=== PATIENT | male | born 1965 | race Caucasian/White ===

== ENCOUNTER 2022-04-02 13:38 | Inpatient (IN) | payer SELFPAY ==
[~2022-04-02] VITALS: Ht 175.3 cm; Wt 113.4 kg
[2022-04-02 14:12] LABS: BASOPHILS % 0.4 % (0.0-1.0); HEMATOCRIT 47.8 % (38.2-49.6); HEMOGLOBIN 16.4 g/dL (14.0-18.0); LYMPHOCYTES # (AUTO) 1.4 (1.0-3.2); LYMPHOCYTES % 24.6 % (18.0-39.1); MEAN CORPUSCULAR HGB CONC 34.3 g/dL (31-35); MEAN CORPUSCULAR VOLUME 87.5 fL (81-99); MONOCYTES # (AUTO) 0.3 (0.2-0.8); MONOCYTES % 5.3 % (4.4-11.3); NEUTROPHILS # (AUTO) 3.9 (2.1-6.9); NEUTROPHILS % 69.2 % (38.7-80.0); RED BLOOD COUNT 5.46 x10e6/uL (4.3-5.7); RED CELL DISTRIBUTION WIDTH 11.6 % (11.7-14.4)
[2022-04-02 14:13] LABS: PLATELET COUNT 67 x10e3/uL (140-360)
[2022-04-02] MEDS ORDERED: ACETAMINOPHEN 325 MG TAB PO ONE (14:15)
[2022-04-02 14:24] LABS: INR 1.05; PARTIAL THROMBOPLASTIN TIME 30.3 seconds (23.8-35.5); PROTHROMBIN TIME 14.7 seconds (11.9-14.5)
[2022-04-02 14:30] LABS: ALBUMIN/GLOBULIN RATIO 0.9 (0.8-2.0); ANION GAP 12.9 mmol/L (8-16); CALCIUM 8.1 mg/dL (8.4-10.2); CREATININE, SERUM 1.16 mg/dL (0.72-1.25); POTASSIUM 3.9 mmol/L (3.5-5.1)
[2022-04-02] MEDS ORDERED: SODIUM CHLORIDE 0.9% IV ONE (14:30)
[2022-04-02] MEDS ORDERED: IOPAMIDOL 370 MG/ML 100 ML INFUS..BTL INJ ONE (15:07)
[2022-04-02] MEDS ORDERED: METFORMIN HCL500 MG PO (16:45)
[2022-04-02] MEDS ORDERED: FARXIGA10 MG PO (16:45)
[2022-04-02] MEDS ORDERED: ROSUVASTATIN CAL5 MG PO (16:45)
[2022-04-02] MEDS ORDERED: vitamin d3 PO (16:45)
[2022-04-02] MEDS ORDERED: DEXTROSE 50% SYRINGE 50 ML IV PRN (19:15)
[2022-04-02] MEDS: INSULIN LISPRO 100 UNIT/1 ML 3ML VIAL SQ SCH (21:30)
[2022-04-03 07:30] VITALS: BP 128/74
[2022-04-03 08:15] VITALS: BP 127/75
[2022-04-03 08:33] LABS: BASOPHILS # (AUTO) 0.1 (0.0-0.1); BASOPHILS % 1.2 % (0.0-1.0); HEMATOCRIT 41.7 % (38.2-49.6); HEMOGLOBIN 14.8 g/dL (14.0-18.0); LYMPHOCYTES # (AUTO) 0.9 (1.0-3.2); LYMPHOCYTES % 18.8 % (18.0-39.1); MEAN CORPUSCULAR HEMOGLOBIN 30.3 pg (28-32); MEAN CORPUSCULAR HGB CONC 35.5 g/dL (31-35); MEAN CORPUSCULAR VOLUME 85.3 fL (81-99); MONOCYTES # (AUTO) 0.3 (0.2-0.8); MONOCYTES % 6.5 % (4.4-11.3); NEUTROPHILS # (AUTO) 3.6 (2.1-6.9); NEUTROPHILS % 72.7 % (38.7-80.0); PLATELET COUNT 70 x10e3/uL (140-360); RED BLOOD COUNT 4.89 x10e6/uL (4.3-5.7); RED CELL DISTRIBUTION WIDTH 12.2 % (11.7-14.4)
[2022-04-03 08:55] LABS: CHOL/HDL RATIO 12.1 (3.9-4.7)
[2022-04-03 08:56] LABS: ANION GAP 15.9 mmol/L (8-16); CREATININE, SERUM 0.98 mg/dL (0.72-1.25); POTASSIUM 3.9 mmol/L (3.5-5.1)
[2022-04-03 08:57] LABS: ALBUMIN 2.6 g/dL (3.5-5.0); BILIRUBIN,DIRECT 0.7 mg/dL (0.0-0.5)
[2022-04-03 09:17] LABS: THYROID STIMULATING HORMONE 0.672 uIU/mL (0.350-4.940)
[2022-04-03] MEDS: INSULIN LISPRO 100 UNIT/1 ML 3ML VIAL SQ SCH ×4 (11:14→21:00)
[2022-04-03 11:43] VITALS: BP 122/75
[2022-04-03] MEDS ORDERED: ACETAMINOPHEN 650 MG SUPP PR NR (14:15)
[2022-04-03] MEDS: SODIUM CHLORIDE 0.9% 1000ML 1,000 ML IV SCH (14:15)
[2022-04-03] MEDS ORDERED: ACETAMINOPHEN 650 MG SUPP PR ONE (14:15)
[2022-04-03 15:32] VITALS: BP 119/65
[2022-04-03] MEDS ORDERED: ACETAMINOPHEN 325 MG TAB PO ONE (19:15)
[2022-04-03] MEDS ORDERED: Vancomycin IV 1 GM in SODIUM CHLORIDE 0.9% 250ML 250 ML IV ONE (19:30)
[2022-04-03 20:00] VITALS: BP 120/74
[2022-04-03 20:07] VITALS: BP 120/74
[2022-04-04] VITALS: BP 130/64
[2022-04-04 04:00] VITALS: BP 127/61
[2022-04-04] MEDS: ACETAMINOPHEN 325 MG TAB PO PRN ×2 (06:01→19:49)
[2022-04-04] MEDS: SODIUM CHLORIDE 0.9% 1000ML 1,000 ML IV SCH (06:02)
[2022-04-04 06:27] LABS: BASOPHILS % 0.2 % (0.0-1.0); HEMATOCRIT 39.2 % (38.2-49.6); HEMOGLOBIN 13.1 g/dL (14.0-18.0); LYMPHOCYTES # (AUTO) 1.2 (1.0-3.2); LYMPHOCYTES % 20.5 % (18.0-39.1); MEAN CORPUSCULAR HEMOGLOBIN 29.9 pg (28-32); MEAN CORPUSCULAR HGB CONC 33.4 g/dL (31-35); MEAN CORPUSCULAR VOLUME 89.5 fL (81-99); MONOCYTES # (AUTO) 0.4 (0.2-0.8); MONOCYTES % 6.6 % (4.4-11.3); NEUTROPHILS # (AUTO) 4.2 (2.1-6.9); NEUTROPHILS % 72.2 % (38.7-80.0); PLATELET COUNT 68 x10e3/uL (140-360); RED BLOOD COUNT 4.38 x10e6/uL (4.3-5.7); RED CELL DISTRIBUTION WIDTH 11.6 % (11.7-14.4)
[2022-04-04 06:47] LABS: ANION GAP 16.3 mmol/L (8-16); CALCIUM 7.7 mg/dL (8.4-10.2); CREATININE, SERUM 0.85 mg/dL (0.72-1.25); POTASSIUM 3.3 mmol/L (3.5-5.1)
[2022-04-04 09:26] VITALS: BP 116/75
[2022-04-04] MEDS: INSULIN LISPRO 100 UNIT/1 ML 3ML VIAL SQ SCH ×4 (09:58→20:34)
[2022-04-04 12:38] LABS: PLATELET ESTIMATE SLIGHTLY DECREASED
[2022-04-04 12:40] LABS: PLATELET MORPHOLOGY COMMENT NORMAL
[2022-04-04] MEDS ORDERED: POTASSIUM CHLORIDE 10MEQ EA PO NR (15:30)
[2022-04-04] MEDS ORDERED: POTASSIUM CHLORIDE 10MEQ EA PO ONE ×2 (15:30→19:15)
[2022-04-04 17:38] VITALS: BP 137/72
[2022-04-04 20:08] VITALS: BP 143/79
[2022-04-04 21:00] VITALS: BP 143/79
[2022-04-05] VITALS (8 sets, daily range): BP systolic 121–144; BP diastolic 62–87
[2022-04-05] MEDS: ACETAMINOPHEN 325 MG TAB PO PRN ×3 (04:18→21:08)
[2022-04-05] MEDS ORDERED: ALBUTEROL/IPRATROPIUM 3 ML NEB NEB PRN (06:00)
[2022-04-05] MEDS ORDERED: FUROSEMIDE INJ 10 MG/ML 4 ML VIAL ONE (06:28)
[2022-04-05] MEDS ORDERED: FUROSEMIDE INJ 10 MG/ML 2 ML VIAL IV ONE (06:45)
[2022-04-05] MEDS: INSULIN LISPRO 100 UNIT/1 ML 3ML VIAL SQ SCH ×4 (07:30→21:13)
[2022-04-05 08:27] LABS: ANION GAP 13.4 mmol/L (8-16); CALCIUM 7.8 mg/dL (8.4-10.2); CREATININE, SERUM 0.9 mg/dL (0.72-1.25); POTASSIUM 3.4 mmol/L (3.5-5.1)
[2022-04-05] MEDS: SIMVASTATIN 20 MG TAB PO SCH (21:08)
[2022-04-06] VITALS (7 sets, daily range): BP systolic 105–142; BP diastolic 64–73
[2022-04-06 06:03] LABS: BASOPHILS % 0.2 % (0.0-1.0); EOSINOPHILS % 0.1 % (0.0-6.0); HEMATOCRIT 39.6 % (38.2-49.6); HEMOGLOBIN 13.2 g/dL (14.0-18.0); LYMPHOCYTES # (AUTO) 1.1 (1.0-3.2); LYMPHOCYTES % 10.8 % (18.0-39.1); MEAN CORPUSCULAR HEMOGLOBIN 29.9 pg (28-32); MEAN CORPUSCULAR HGB CONC 33.3 g/dL (31-35); MEAN CORPUSCULAR VOLUME 89.8 fL (81-99); MONOCYTES # (AUTO) 0.6 (0.2-0.8); MONOCYTES % 5.2 % (4.4-11.3); NEUTROPHILS # (AUTO) 8.7 (2.1-6.9); NEUTROPHILS % 82.7 % (38.7-80.0); PLATELET COUNT 113 x10e3/uL (140-360); RED BLOOD COUNT 4.41 x10e6/uL (4.3-5.7); RED CELL DISTRIBUTION WIDTH 11.9 % (11.7-14.4)
[2022-04-06] MEDS: ACETAMINOPHEN 325 MG TAB PO PRN (06:13)
[2022-04-06 06:21] LABS: ALBUMIN 2.7 g/dL (3.5-5.0); ANION GAP 14.3 mmol/L (8-16); CALCIUM 7.7 mg/dL (8.4-10.2); CREATININE, SERUM 0.84 mg/dL (0.72-1.25); MAGNESIUM 1.8 MG/DL (1.3-2.1); PHOSPHORUS 1.4 MG/DL (2.3-4.7); POTASSIUM 3.3 mmol/L (3.5-5.1)
[2022-04-06] MEDS: INSULIN LISPRO 100 UNIT/1 ML 3ML VIAL SQ SCH ×4 (07:30→21:07)
[2022-04-06] MEDS ORDERED: METFORMIN HCL 500 MG TAB PO SCH (09:00)
[2022-04-06] MEDS: NON-FORMULARY MEDICATION (Dapagliflozin Propanediol (Farxiga) 10 MG) PO SCH (09:00)
[2022-04-06] MEDS ORDERED: POTASSIUM PHOSPHATE IV ONE (10:00)
[2022-04-06] MEDS ORDERED: SODIUM CHLORIDE IV ONE (10:00)
[2022-04-06] MEDS: ACETAMIN/BUTALBITAL/CAFFEINE TAB PO PRN (21:03)
[2022-04-06] MEDS: SIMVASTATIN 20 MG TAB PO SCH (21:03)
[2022-04-07] VITALS (8 sets, daily range): BP systolic 108–120; BP diastolic 53–76
[2022-04-07 06:15] LABS: BASOPHILS # (AUTO) 0.1 (0.0-0.1); BASOPHILS % 0.4 % (0.0-1.0); EOSINOPHILS % 0.2 % (0.0-6.0); HEMATOCRIT 37.8 % (38.2-49.6); HEMOGLOBIN 12.6 g/dL (14.0-18.0); LYMPHOCYTES # (AUTO) 1.8 (1.0-3.2); LYMPHOCYTES % 15.2 % (18.0-39.1); MEAN CORPUSCULAR HGB CONC 33.3 g/dL (31-35); MONOCYTES # (AUTO) 0.7 (0.2-0.8); MONOCYTES % 6.1 % (4.4-11.3); NEUTROPHILS # (AUTO) 9.2 (2.1-6.9); NEUTROPHILS % 76.8 % (38.7-80.0); PLATELET COUNT 236 x10e3/uL (140-360); RED CELL DISTRIBUTION WIDTH 12.4 % (11.7-14.4)
[2022-04-07 06:18] LABS: ANION GAP 15.2 mmol/L (8-16); CALCIUM 7.7 mg/dL (8.4-10.2); CREATININE, SERUM 0.85 mg/dL (0.72-1.25); PHOSPHORUS 1.8 MG/DL (2.3-4.7); POTASSIUM 3.2 mmol/L (3.5-5.1)
[2022-04-07] MEDS: ACETAMIN/BUTALBITAL/CAFFEINE TAB PO PRN ×3 (06:39→21:19)
[2022-04-07] MEDS: INSULIN LISPRO 100 UNIT/1 ML 3ML VIAL SQ SCH ×4 (07:30→21:27)
[2022-04-07] MEDS: METFORMIN HCL 500 MG TAB PO SCH (08:52)
[2022-04-07] MEDS: NON-FORMULARY MEDICATION (Dapagliflozin Propanediol (Farxiga) 10 MG) PO SCH (09:00)
[2022-04-07 09:05] LABS: LYMPHOCYTES % (MANUAL) 16 % (19-48); MONOCYTES % (MANUAL) 7 % (3.4-9.0); MYELOCYTES % (MANUAL) 1 % (0-0); NEUTROPHILS % (MANUAL) 76 % (40-74); PLATELET ESTIMATE ADEQUATE; PLATELET MORPHOLOGY COMMENT NORMAL; RBC MORPHOLOGY COMMENT NORMAL
[2022-04-07] MEDS ORDERED: POTASSIUM CHLORIDE 10MEQ EA PO ONE (15:00)
[2022-04-07] MEDS: CIPROFLOXACIN-DEXAMETHASONE (OTIC) 7.5 ML BOTTLE OT SCH (16:11)
[2022-04-07] MEDS: SIMVASTATIN 20 MG TAB PO SCH (21:19)
[2022-04-08] VITALS (8 sets, daily range): BP systolic 102–148; BP diastolic 59–76
[2022-04-08] MEDS: ACETAMINOPHEN 325 MG TAB PO PRN (05:28)
[2022-04-08] MEDS: INSULIN LISPRO 100 UNIT/1 ML 3ML VIAL SQ SCH ×4 (07:30→21:06)
[2022-04-08 08:19] LABS: BASOPHILS # (AUTO) 0.1 (0.0-0.1); BASOPHILS % 0.6 % (0.0-1.0); EOSINOPHILS # (AUTO) 0.1 (0.0-0.4); EOSINOPHILS % 0.4 % (0.0-6.0); HEMATOCRIT 37.1 % (38.2-49.6); HEMOGLOBIN 12.3 g/dL (14.0-18.0); LYMPHOCYTES # (AUTO) 2.5 (1.0-3.2); LYMPHOCYTES % 20.6 % (18.0-39.1); MEAN CORPUSCULAR HEMOGLOBIN 30.1 pg (28-32); MEAN CORPUSCULAR HGB CONC 33.2 g/dL (31-35); MEAN CORPUSCULAR VOLUME 90.7 fL (81-99); MONOCYTES # (AUTO) 0.8 (0.2-0.8); MONOCYTES % 6.4 % (4.4-11.3); NEUTROPHILS # (AUTO) 8.7 (2.1-6.9); NEUTROPHILS % 70.7 % (38.7-80.0); PLATELET COUNT 298 x10e3/uL (140-360); RED BLOOD COUNT 4.09 x10e6/uL (4.3-5.7); RED CELL DISTRIBUTION WIDTH 12.7 % (11.7-14.4)
[2022-04-08] MEDS: METFORMIN HCL 500 MG TAB PO SCH (08:34)
[2022-04-08] MEDS: CIPROFLOXACIN-DEXAMETHASONE (OTIC) 7.5 ML BOTTLE OT SCH ×2 (08:35→16:38)
[2022-04-08 08:36] LABS: ANION GAP 14.2 mmol/L (8-16); CALCIUM 7.6 mg/dL (8.4-10.2); CREATININE, SERUM 0.96 mg/dL (0.72-1.25); POTASSIUM 3.2 mmol/L (3.5-5.1)
[2022-04-08] MEDS: NON-FORMULARY MEDICATION (Dapagliflozin Propanediol (Farxiga) 10 MG) PO SCH (09:00)
[2022-04-08] MEDS ORDERED: POTASSIUM CHLORIDE 20 MEQ TAB CR PO ONE (12:20)
[2022-04-08] MEDS ORDERED: POTASSIUM PHOSPHATE 15 MM in SODIUM CHLORIDE 0.9% 250ML 250 ML IV ONE (12:30)
[2022-04-08] MEDS ORDERED: ACETAMINOPHEN325 M1 PO (13:13)
[2022-04-08] MEDS ORDERED: CIPRODEX OTIC7.5 ML OT (13:13)
[2022-04-08] MEDS ORDERED: Acetamin/Butalbital/Caffeine PO (13:13)
[2022-04-08] MEDS ORDERED: SODIUM CHLORIDE 0.9% 1000ML 1,000 ML ONE (14:01)
[2022-04-08] MEDS: SIMVASTATIN 20 MG TAB PO SCH (20:58)
[2022-04-09] VITALS: BP 130/68
[2022-04-09 04:00] VITALS: BP 121/69
[2022-04-09 06:34] LABS: BASOPHILS # (AUTO) 0.1 (0.0-0.1); BASOPHILS % 0.7 % (0.0-1.0); EOSINOPHILS % 0.4 % (0.0-6.0); HEMATOCRIT 37.1 % (38.2-49.6); HEMOGLOBIN 11.9 g/dL (14.0-18.0); LYMPHOCYTES # (AUTO) 3.1 (1.0-3.2); LYMPHOCYTES % 27.1 % (18.0-39.1); MEAN CORPUSCULAR HEMOGLOBIN 29.8 pg (28-32); MEAN CORPUSCULAR HGB CONC 32.1 g/dL (31-35); MEAN CORPUSCULAR VOLUME 92.8 fL (81-99); MONOCYTES % 8.8 % (4.4-11.3); NEUTROPHILS % 61.4 % (38.7-80.0); PLATELET COUNT 429 x10e3/uL (140-360); RED CELL DISTRIBUTION WIDTH 12.8 % (11.7-14.4)
[2022-04-09 06:47] LABS: ALBUMIN 2.4 g/dL (3.5-5.0); ALBUMIN/GLOBULIN RATIO 0.8 (0.8-2.0); ANION GAP 14.4 mmol/L (8-16); CALCIUM 7.9 mg/dL (8.4-10.2); CREATININE, SERUM 0.89 mg/dL (0.72-1.25); MAGNESIUM 2.1 MG/DL (1.3-2.1); PHOSPHORUS 2.7 MG/DL (2.3-4.7); POTASSIUM 3.4 mmol/L (3.5-5.1)
[2022-04-09 07:55] VITALS: BP 105/58
[2022-04-09] MEDS: INSULIN LISPRO 100 UNIT/1 ML 3ML VIAL SQ SCH (08:30)
[2022-04-09] MEDS: NON-FORMULARY MEDICATION (Dapagliflozin Propanediol (Farxiga) 10 MG) PO SCH (09:00)
[2022-04-09] MEDS: METFORMIN HCL 500 MG TAB PO SCH (09:14)
[2022-04-09] MEDS: CIPROFLOXACIN-DEXAMETHASONE (OTIC) 7.5 ML BOTTLE OT SCH (09:14)
[2022-04-09 11:25] VITALS: BP 125/66
[2022-04-09] MEDS ORDERED: POTASSIUM CHLORIDE 10MEQ EA PO ONE (11:30)
[2022-04-09 12:01] LABS: BAND NEUTROPHILS % (MANUAL) 1 %; EOSINOPHILS % (MANUAL) 1 % (0-7); LYMPHOCYTES % (MANUAL) 11 % (19-48); MONOCYTES % (MANUAL) 10 % (3.4-9.0); NEUTROPHILS % (MANUAL) 72 % (40-74); PLATELET ESTIMATE ADEQUATE; PLATELET MORPHOLOGY COMMENT NORMAL; RBC MORPHOLOGY COMMENT NORMAL
== END 2022-04-09 13:08 | disposition home or self-care (01) | DRG 872 ==
LOC: ER 13:46 → ERHOLD 14:31 → MED/SURG2 04-03 07:35
PROVIDERS: ADMIT Internal Medicine; ATTEND Internal Medicine
DX: A41.9 Sepsis, unspecified organism (principal); H60.22 Malignant otitis externa, left ear; E87.1 Hypo-osmolality and hyponatremia; L03.211 Cellulitis of face; E11.69 Type 2 diabetes mellitus with other specified complication; E78.5 Hyperlipidemia, unspecified; R74.01 Elevation of levels of liver transaminase levels; K76.0 Fatty (change of) liver, not elsewhere classified; Z20.822 Contact with and (suspected) exposure to COVID-19; R16.0 Hepatomegaly, not elsewhere classified; E11.65 Type 2 diabetes mellitus with hyperglycemia; E83.39 Other disorders of phosphorus metabolism; E87.6 Hypokalemia; E66.09 Other obesity due to excess calories; Z68.36 Body mass index [BMI] 36.0-36.9, adult; R50.2 Drug induced fever; E11.40 Type 2 diabetes mellitus with diabetic neuropathy, unspecified; Z79.4 Long term (current) use of insulin
CPT/HCPCS: 36415; 70450; 70487; 71045; 76700; 80048; 80053; 80061; 80076; 82948; 83036; 83605; 83735; 84100; 84443; 85025; 85610; 85730; 87040; 87400; 93005; 93306; 94640; 94799; 99251; 99284; J1940; J2543; J3370; J7030; J7040; J7050; Q9967